=== PATIENT | female | born 2005 | race African-American/Black ===

== ENCOUNTER 2025-03-16 23:51 | Emergency (ER) | payer MEDICAID, OTHER ==
[2025-03-17 01:43] LABS: #Basophils 0.03 10x3/uL (0.0-0.2); #Eosinophils 0.13 10x3/uL (0.0-0.7); #Monocytes 0.63 10x3/uL (0.11-0.59); #Neutrophils 5.58 10x3/uL (1.40-6.50); %Basophils 0.3 % (0.0-1.0); %Eosinophils 1.4 % (0.0-10.0); %Lymphocytes 29.6 % (28.0-48.0); %Monocytes 6.9 % (0.0-4.0); %Neutrophils 61.4 % (31.0-61.0); Hematocrit 33.8 % (36.0-47.0); Hemoglobin 10.6 g/dL (12.0-16.0); Mean Corpuscular Hemoglobin 29.0 pg (25.0-35.0); Mean Corpuscular Volume 92.3 fL (78.0-98.0); Platelet Count 238 10x3/uL (130-400); Red Blood Cell (RBC) Count 3.66 mill/uL (4.00-5.20); White Blood Cell (WBC) Count 9.10 10x3/uL (4.8-10.8)
[2025-03-17 01:57] LABS: ALT (SGPT) 53 U/L (Less than 34); AST (SGOT) 43 U/L (11-34); Albumin 3.4 g/dL (3.1-4.5); Alkaline Phosphatase 66 U/L (40-100); Anion Gap 11 mmol/L (10-20); BUN (Urea Nitrogen) 6 mg/dL (8.4-21.0); Bilirubin, Total 0.2 mg/dL (0.3-1.2); Calc. Creatinine Clearance 0 mL/min (70-130); Calcium 9.7 mg/dL (7.8-10.44); Carbon Dioxide 21 mmol/L (22-29); Chloride 107 mmol/L (98-107); Globulin 3.8 g/dL (2.4-3.5); Glucose 109 mg/dL (70-105); Potassium 4.1 mmol/L (3.5-5.1); Sodium 135 mmol/L (136-145)
== END 2025-03-17 03:42 | disposition home or self-care (01) ==
LOC: ERS 23:51
DX: O9A.212 Injury, poisoning and certain other consequences of external causes complicating pregnancy, second trimester (principal); S16.1XXA Strain of muscle, fascia and tendon at neck level, initial encounter; O99.012 Anemia complicating pregnancy, second trimester; D64.9 Anemia, unspecified; X58.XXXA Exposure to other specified factors, initial encounter; Z3A.23 23 weeks gestation of pregnancy
CPT/HCPCS: 36415; 76805; 80053; 83880; 84484; 85025; 93005; 99285